=== PATIENT | male | born 1995 | race African-American/Black ===

== ENCOUNTER 2018-04-10 22:07 | Emergency (ER) | payer OTHER ==
[~2018-04-10] VITALS: Ht 177.8 cm; Wt 81.6 kg
[2018-04-10 22:11] VITALS: BP 121/70
[2018-04-11] MEDS ORDERED: fentaNYL 0.05 MG/ML VIAL IM ONE (00:30)
[2018-04-11] MEDS ORDERED: DIAZEPAM 5 MG TAB PO ONE (00:30)
[2018-04-11] MEDS: KETOROLAC 30 MG/ML VIAL IM ONE ×2 (00:54→01:00)
[2018-04-11 01:53] VITALS: BP 121/70
== END 2018-04-11 01:53 | disposition home or self-care (01) ==
LOC: MED 22:07
DX: R07.89 Other chest pain (principal); M54.9 Dorsalgia, unspecified
CPT/HCPCS: 29125; 71045; 96372; 99283; J1885; J3010; Q0092

== ENCOUNTER 2018-04-22 19:51 | Emergency (ER) | payer OTHER ==
[~2018-04-22] VITALS: Ht 177.8 cm; Wt 72.6 kg
[2018-04-22 19:59] VITALS: BP 142/80
== END 2018-04-22 20:03 | disposition left against medical advice (07) ==
LOC: MED 19:51
DX: R07.89 Other chest pain (principal); Z53.21 Procedure and treatment not carried out due to patient leaving prior to being seen by health care provider

== ENCOUNTER 2024-01-19 22:59 | Emergency (ER) | payer OTHER ==
[~2024-01-19] VITALS: Ht 180.3 cm; Wt 99.8 kg
[2024-01-19 23:28] VITALS: BP 116/72; PULSE 63; RESP 14; TEMP 97.7; O2SAT 99
[2024-01-20] VITALS: O2SAT 98
[2024-01-20] MEDS ORDERED: cefTRIAXone 1,000 MG VIAL ONE (00:15)
[2024-01-20] MEDS ORDERED: LIDOCAINE MPF 1% 5 ML ONE (00:15)
[2024-01-20] MEDS: metroNIDAZOLE 500 MG TAB PO ONE (00:28)
[2024-01-20] MEDS: AZITHROMYCIN 250 MG TAB PO ONE (00:28)
[2024-01-20] MEDS: cefTRIAXone 1,000 MG in LIDOCAINE MPF 1% 2.1 ML IM ONE (00:28)
[2024-01-20] MEDS ORDERED: DOXY-690 PO (01:06)
== END 2024-01-20 01:12 | disposition home or self-care (01) ==
LOC: MED 22:59
DX: Z79.899 Other long term (current) drug therapy (principal)
CPT/HCPCS: 96372; 99283; J0696; J2001